=== PATIENT | female | born 1950 | race African-American/Black ===

== ENCOUNTER → 2019-05-29 | Outpatient (CLI) | payer BC, MEDICARE ==
[2017-04-19 08:23] VITALS: BP 132/84
[~2019-05-29] MED LIST: ASPI-482 PO; CARV25TA2 PO; CEPH-264 PO; DIGO125T3 PO; FURO80TA72 PO; GABA300C18 PO; INSU100I13 SQ; INSU100V31 SQ; ISOS30TA4 PO; LOSA-73 PO; LOVA20TA2 PO; MECL-75 PO; POTA20TA4 PO
--- NOTE | 2019-05-29 11:47 | RAD ---
Bilateral lower coronary arterial duplex ultrasound study without comparison for peripheral arterial disease. TECHNIQUE AND FINDINGS: Real-time grayscale and color and spectral Doppler evaluation of the arteries of lower extremity is performed. There is calcified atherosclerosis diffusely. No hemodynamically significant focal stenoses are identified. On the right, there are no focal velocity elevations. There is triphasic flow in the common femoral, superficial femoral, popliteal, anterior tibial, and dorsalis pedis arteries, with biphasic flow seen within the deep femoral, posterior tibial artery and peroneal arteries. On the left, once again there are no focal velocity elevations, and there is triphasic flow within the common femoral, superficial femoral, and anterior tibial arteries. Biphasic flow within the deep artery, however there is monophasic flow within the posterior tibial, and peroneal arteries. There is hyperdynamic monophasic flow in the dorsalis pedis artery. Incidentally noted are enlarged echogenic lymph nodes within the inguinal regions bilaterally, measuring 4.3 x 0.9 cm on the right and 3.9 x 1.0 cm on the left. IMPRESSION: 1. Findings suggest possible hemodynamically significant stenosis distal to the popliteal artery on the left. 2. Instantly noted enlarged echogenic lymph nodes in the inguinal regions bilaterally. Clinical and laboratory correlation is recommended, with contrast-enhanced CT scan of the abdomen and pelvis if clinically warranted. Electronically signed by: Praveen Aguilar MD (05/29/2019 11:44 AM) [id number]
== END | disposition home or self-care (01) ==
LOC: US 07:30
PROVIDERS: ATTEND Family Medicine
DX: I70.293 Other atherosclerosis of native arteries of extremities, bilateral legs (principal); R59.0 Localized enlarged lymph nodes
CPT/HCPCS: 93925